=== PATIENT | female | born 1965 | race Caucasian/White ===

== ENCOUNTER 2018-10-23 21:34 | Emergency (ER) | payer BC ==
[~2018-10-23] VITALS: Ht 162.6 cm; Wt 68.0 kg
--- NOTE | 2018-10-23 21:38 | NUR ---
PT MARIBEL FROM HOME FOR CP; PT AAOX4, PT ON MONITOR, VSS, NAD NOTED, PENDING MD LERNER
--- NOTE | 2018-10-23 21:40 | NUR ---
DANI, JEREL AT BEDSIDE FOR EVAL
[2018-10-23] MEDS ORDERED: ASPIRIN 81 MG TAB.CHEW ONE (21:51)
--- NOTE | 2018-10-23 21:56 | NUR ---
URINE COLLECTED AND SENT TO LAB
--- NOTE | 2018-10-23 21:57 | NUR ---
TECH AT BEDSIDE FOR EKG
[2018-10-23] MEDS ORDERED: ASPIRIN 81 MG TAB.CHEW PO ONE (22:00)
[2018-10-23 22:07] LABS: BASOPHILS # (AUTO) 0.1 /CMM (0.0-0.2); BASOPHILS % (AUTO) 1.1 % (0.0-2.0); EOSINOPHILS % (AUTO) 4.6 % (0.0-6.0); HEMATOCRIT 37 % (33-45); HEMOGLOBIN 12.3 g/dL (11.5-14.8); LYMPHOCYTES # (AUTO) 2.7 /CMM (0.8-4.8); LYMPHOCYTES % (AUTO) 30.7 % (20.0-44.0); MEAN CORPUSCULAR HGB CONC 33 g/dl (31.0-36.0); MEAN CORPUSCULAR VOLUME 89 fL (82-100); MONOCYTES # (AUTO) 0.7 /CMM (0.1-1.30); MONOCYTES % (AUTO) 8.4 % (2.0-12.0); NEUTROPHILS # (AUTO) 4.9 /CMM (1.8-8.9); NEUTROPHILS % (AUTO) 55.2 % (43.0-81.0); PLATELET COUNT (AUTO) 392 /CMM (150-450); RED BLOOD CELL COUNT(AUTO) 4.17 MIL/uL (4.0-5.2); WHITE BLOOD COUNT (AUTO) 8.9 K/uL (4.3-11.0)
[2018-10-23 22:16] LABS: CALCIUM, SERUM 8.9 mg/dL (8.5-10.1); CARBON DIOXIDE 24 mmol/L (21-32); CHLORIDE 106 mmol/L (98-107); CREATININE 0.8 mg/dL (0.6-1.3); GLUCOSE 100 mg/dL (74-106); POTASSIUM 3.9 mmol/L (3.5-5.1); SODIUM SERUM 138 mmol/L (136-145); UREA NITROGEN, BLOOD 14 mg/dL (7-18)
[2018-10-23 22:22] LABS: ALANINE AMINOTRANSFERASE 12 U/L (12-78); ALBUMIN 3.3 g/dL (3.4-5.0); ALKALINE PHOSPHATASE 92 U/L (46-116); ASPARTATE AMINOTRANSFERASE 18 U/L (15-37); BILIRUBIN,TOTAL 0.2 mg/dL (0.2-1.0); TOTAL PROTEIN, SERUM 7.3 g/dL (6.4-8.2)
[2018-10-23 22:55] LABS: D-DIMER 0.68 mg/L(FEU (0.17-0.50)
[2018-10-23] MEDS ORDERED: BARIUM SULFATE SUSP 450 ML BOTTLE PO ONE (23:04)
[2018-10-23] MEDS ORDERED: CT SWABBABLE VALVE TRANS SET 1 EA INFUS.SET MC ONE (23:04)
[2018-10-23] MEDS ORDERED: IOHEXOL-350 100 ML VIAL IV ONE (23:04)
[2018-10-23 23:58] VITALS: BP 150/72
--- NOTE | 2018-10-24 02:17 | NUR ---
Patient discharged to home in stable condition. Written and verbal after care instructions given. Patient verbalizes understanding of instruction. IV removed. Catheter intact and site benign. Pressure and 4x4 applied to site. No bleeding noted.
== END 2018-10-24 01:10 | disposition home or self-care (01) ==
LOC: ER 21:37
DX: R07.89 Other chest pain (principal); I10 Essential (primary) hypertension; Z91.018 Allergy to other foods
CPT/HCPCS: 36415 ×2; 71045; 71275; 80048; 80076; 83690; 84484 ×2; 85025; 85378; 85730; 93005 ×3; 99284; A4606; Q9967